=== PATIENT | male | born 1945 | race African-American/Black ===

== ENCOUNTER 2016-10-01 17:24 | Emergency (ER) | payer MEDICARE, OTHER ==
[~2016-10-01] VITALS: Ht 175.3 cm; Wt 74.0 kg
[~2016-10-01 17:24] MED LIST: [UNRECOGNIZED DRUG - REMARK]
[2016-10-01] MEDS ORDERED: KETOROLAC 60MG/2ML VIAL IM ONE (18:45)
[2016-10-01] MEDS ORDERED: OXYCODONE HCL/ACETAMINOPHEN 5/325MG TABLET PO ONE (18:45)
[2016-10-01 19:08] VITALS: BP 128/60
== END 2016-10-01 20:51 | disposition home or self-care (01) ==
LOC: ER 19:41
DX: M25.511 Pain in right shoulder (principal); C79.9 Secondary malignant neoplasm of unspecified site; F12.10 Cannabis abuse, uncomplicated; Z88.0 Allergy status to penicillin; Z98.890 Other specified postprocedural states; Z87.891 Personal history of nicotine dependence
CPT/HCPCS: 71010; 73030; 96372; 99284; J1885